=== PATIENT | female | born 1950 | race Caucasian/White ===

== ENCOUNTER → 2024-11-09 10:12 | Outpatient (REF) | payer MEDICARE, OTHER, SELFPAY | LOC: PAVMRI 10:12 | PROVIDERS: ATTENDING PHYSICIAN Pain Medicine Interventional Pain Medicine; FAMILY PHYSICIAN Internal Medicine | DX: M70.71 Other bursitis of hip, right hip (principal); M70.72 Other bursitis of hip, left hip | CPT/HCPCS: 72195 ==